=== PATIENT | male | born 1955 | race Two or more races ===

== ENCOUNTER → 2019-03-10 | Outpatient (CLI) | payer OTHER ==
[2015-04-23 09:23] VITALS: BP 118/66
--- NOTE | 2019-03-10 10:12 | RAD ---
EXAM: LUMBAR SPINE 2-3V. HISTORY: Low back pain. COMPARISON: None. FINDINGS: There is a mild lumbar levocurvature. No fractures are identified. Diffuse mild endplate remodeling indicates mild degenerative disc disease throughout the visualized lower thoracic and lumbar spine. There is only slight loss of disc height at L4-5. Facet osteoarthritis is moderate from L4 through S1. IMPRESSION: 1. Mild diffuse thoracolumbar degenerative disc disease. Moderate facet osteoarthritis from L4 through S1. Electronically signed by: Nemesio Castro MD (03/10/2019 10:09 AM) [facility]
== END | disposition home or self-care (01) ==
LOC: RAD 08:25
DX: M51.35 Other intervertebral disc degeneration, thoracolumbar region (principal); M47.817 Spondylosis without myelopathy or radiculopathy, lumbosacral region
CPT/HCPCS: 72100